=== PATIENT | male | born 1980 | race Caucasian/White ===

== ENCOUNTER 2017-04-04 11:03 | Emergency (ER) | payer SELFPAY ==
[~2017-04-04] VITALS: Ht 172.7 cm; Wt 99.8 kg
[2017-04-04] MEDS ORDERED: BALANCED SALT IRRIG SOLN 15 ML IO ONE (11:04)
[2017-04-04] MEDS ORDERED: FLUORESCEIN SODIUM 1 MG OPHTHALMIC STRIP OP ONE (11:04)
[2017-04-04 11:15] VITALS: BP_SYST 112
[2017-04-04 13:28] VITALS: BP_SYST 116
== END 2017-04-04 13:28 | disposition home or self-care (01) ==
LOC: SED 11:03
DX: S05.01XA Injury of conjunctiva and corneal abrasion without foreign body, right eye, initial encounter (principal); X58.XXXA Exposure to other specified factors, initial encounter; Y93.89 Activity, other specified; Y92.89 Other specified places as the place of occurrence of the external cause; Y99.8 Other external cause status
CPT/HCPCS: 99283